=== PATIENT | male | born 1970 | race Hispanic/Latino ===

== ENCOUNTER 2017-05-19 12:17 | Emergency (ER) | payer OTHER ==
--- NOTE | 2017-05-19 12:34 | Emergency Department Report ---
ED CPR HPI - General Stated Complaint: CARDIAC ARREST Time Seen by Provider: 05/19/17 12:30 - History of Present Illness Initial Comments: Medics reported over 15 minutes of unsuccessful resuscitation to include multiple rounds of epinephrine and atropine, intubation and an IO catheter. There was no return of spontaneous circulation. The patient was found in asystole and it was persistent despite the above. EMS states that fire rescue was already on the scene providing CPR. They state that the patient was found unresponsive in his bed at [facility]. No further information is available. I have reviewed the patient's recent laboratory tests. I did note a platelet count of 81,000 and a CO2 of 17 1 metamyelocyte and 1 myelocyte on the CBC. The patient was diabetic. He has had a previous tracheostomy. MD Complaint: found unresponsive (in asystole) -: minute(s) (past medical history 15 minutes prior to fire rescue arrival) Place: other ([facility]) Shock Advised: No Initial Findings in the Field: systole ROSC in the Field: No Associated Injuries: No Associated Symptoms: other (none known) Treatments Prior to Arrival: intubation, epinephrine mgs #, atropine mgs #, other (IO catheter) ED Review of Systems ROS: Stated complaint: CARDIAC ARREST Other details as noted in HPI Comment: Unobtainable due to pts medical conditions ED Past Medical Hx - Past Medical History Hx Diabetes: Yes - Surgical History Additional Surgical History: Tracheostomy in past - Social History Other Social History: Inpatient at [facility] ED Physical Exam - General Limitations: Other General appearance: other (no signs of life) - Head Head exam: Present: atraumatic - Eye Pupils: Present: other (fixed dilated pupils) - ENT ENT exam: Present: other (limited) - Neck Neck exam: Present: other (healed tracheostomy) - Respiratory Respiratory exam: Present: normal lung sounds bilaterally (with Ambu bag assist) - Cardiovascular Cardiovascular Exam: Present: other (asystole) - GI/Abdominal GI/Abdominal exam: Present: soft. Absent: distended - Extremities Exam Extremities exam: Present: normal inspection - Neurological Exam Neurological exam: Present: other (no signs of life) ED Course - Reevaluation(s) Reevaluation #1: Patient arrives in asystole. Advanced resuscitative efforts have failed. Further resuscitation is deemed futile. The patient was pronounced DOA. 05/19/17 12:36 Critical care attestation.: If time is entered above; I have spent that time in minutes in the direct care of this critically ill patient, excluding procedure time. ED Disposition Clinical Impression: Cardiac arrest Disposition: DC-20 Is pt being admited?: No Does the pt Need Aspirin: No Condition: Stable Time of Disposition: 12:37
== END 2017-05-19 19:00 ==
LOC: ED 12:17
DX: I46.9 Cardiac arrest, cause unspecified (principal); E11.9 Type 2 diabetes mellitus without complications
CPT/HCPCS: 92950